=== PATIENT | female | born 1975 | race Caucasian/White ===

== ENCOUNTER 2024-04-10 06:28 | Observation (INO) ==
--- NOTE | 2024-03-02 12:55 | PAT Medication Instructions ---
Medication Instructions Date of Service March 02, 2024 Home Medications multivitamin 1 tab PO QAM DO NOT take the morning of surgery multivitamin 1 tab PO QAM Other Notes NOTHING TO EAT OR DRINK AFTER MIDNIGHT. If you have any questions please call us at [phone] or [phone] or [phone] or [phone]
--- NOTE | 2024-03-09 10:09 | Anesthesiology Consultation ---
Date of Service March 09, 2024 Assessment & Plan (1) Encounter for pre-operative examination: Chart Review Chart Review: Acceptable Risk for Surgery and Patient seen in Pre Admission Testing Pt currently scheduled as 23 hours observation. If surgeon decides to change patient to Same Day Joint, patient would be acceptable risk for DALE, pending patient is motivated, has good support and surgeon's office completes [facility] Program preop requirements. Per PAT appt on 03/09/24, no recent illness/disease exposures, illness related symptoms, or recent illness/disease positive tests. Will leave to surgeon's discretion if preop Covid testing needed Teaching & Discussion Pre-Anesthesia Teaching/Discussion Notes: Instructed NPO after midnight before surgery,except medications with 15 cc of water. Medication instructions provided according to the PAT guidelines. History Surgery Operation Date: 04/10/24 07:00 Proposed Procedures p Right Total Hip Arthroplasty - Theo Bautista MD Height/Weight Height: 5 ft 9 in Weight: 118.2 kg Allergies Allergy/AdvReac Type Severity Reaction Status Date / Time Penicillins Allergy Unknown Hives Verified 02/23/24 11:19 Medications Home Medications Medication Instructions Recorded Confirmed Last Taken multivitamin 1 tab PO PM 02/23/24 03/09/24 Unknown Past Medical History Medical History Asthma no inhalers, no issues in years (only has issues when sick) well controlled and stable currently Elevated BP without diagnosis of hypertension Hip osteoarthritis History of anesthesia reaction states had issues with hysterectomy, slow to wake History of COVID-19 2021- no hosp; resolved Nausea and vomiting after administration of anesthetic agent Exercise / Class Metabolic Activity II 4-5 Yardwork/Stairs/Walk up hill (one flight of stairs - no chest pain or SOB ) Past Family History Family History Other No family history of adverse response to anesthesia Past Surgical History Surgical History History of hysterectomy Hx of colonoscopy Hx of umbilical hernia repair S/P tonsillectomy [place] teeth removed Past Anesthesia History No Hx of Anesthesia Complications (with exception to slow to wake with hysterectomy - just groggy- no reintubation or ICU stay- no issues with subsequent umbilical hernia surgery ) and No Family Hx of Anesthesia Complications History of PONV History of PONV (patient feels more due to pain medication (unsure of what type) ) and Hx of Motion Sickness Social History Smoking Status: Never smoker Do You Dip or Chew Tobacco: No Hx Alcohol Use: Yes alcohol intake frequency: holidays/special occasions only Hx Substance Use: No substance use type: does not use Review of Systems - Occ reflux - no medications needed - Hx of snoring - minimal witnessed apnea - no hx of sleep study Patient denies chest pain, shortness of breath, dyspnea on exertion, cough, wheezing, palpitations. No hx of seizures, stroke, PA. No hx of blood clots or blood transfusions Physical Exam Vital Signs VITALS BP 109/72 P 63 TEMP 98.1 SP02 96% RESP 16 Constitutional no acute distress ENMT Mouth: no TMJ clicking Thyromental Distance: > or= 3.5 Finger Breadths (3.5) Mallampati Class: III Top partial denture Missing bottom molars Neck neck extension not limited Respiratory normal respiratory effort; no respiratory distress Auscultation: lungs clear to auscultation bilaterally; no wheezes Cardiovascular Rate/Rhythm: regular rate and regular rhythm Heart Sounds: no murmur Vessels: no carotid bruit Musculoskeletal Spine: no pain with cervical ROM Extremities: extremities normal to inspection Psychiatric Orientation: alert Lab Results Anesthesia Preop Results Results Anesthesia Widget: WBC 5.38 K/ul (4.8-10.8) 03/09/24 Hgb 14.2 g/dl (12.0-16.0) 03/09/24 Hct 42.5 % (37.0-47.0) 03/09/24 Plt 206 K/uL (130-400) 03/09/24 Na 140 mmol/L (136-145) 03/09/24 K 4.1 mmol/L (3.5-5.1) 03/09/24 Cl 106 mmol/L (98-107) 03/09/24 CO2 29 mmol/L (21-32) 03/09/24 BUN 10 mg/dl (6-23) 03/09/24 Creat 0.80 mg/dl (0.6-1.2) 03/09/24 Glucose Level 92 mg/dl (70-99(Fasting)) 03/09/24 PT 10.5 Seconds (9.0-12.0) 03/09/24 PTT 32 Seconds (21-31) H 03/09/24 INR 1.0 (0.9-1.1) 03/09/24 Blood Type O Positive 03/09/24 Antibody Screen NEGATIVE 03/09/24 Testing Electrocardiogram Date: 03/09/24 Findings: + SB @ (59bpm) Rightward axis Low voltage QRS Chest X-Ray Date: 03/09/24 Findings: + NAD FINDINGS: No lines and tubes are seen. The cardiomediastinal silhouette is normal. The lungs are clear. No evidence of pleural effusion or pneumothorax.
--- NOTE | 2024-04-07 08:43 | History & Physical Report ---
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 This is gradually gotten worse over the past 4 years. She is failed conservative treatment. She would like to have her hip fixed. Plan: Orgran taken to the operating due to right total hip placement but the risks Mente this procedure explained the patient and include but not limited to DVT PE infection neurological and vascular bleeding palm pain limb range of motion test is fairly her symptoms incomplete relief of symptoms need for further surgery in the future dislocation fracture leg length inequality excetra. The patient understands and desires to proceed. Informed consent was obtained. She does have a a moderate soft tissue envelope. Will likely use a Prevena VAC dressing postoperatively to limit drainage and assist in wound healing. Use aspirin for DVT prophylaxis. She is planning on being discharged home using the [facility] home health program. (2) Hip dysplasia: History of Present Illness Chief Complaint: . Right hip pain. Primary Care Provider: NO PCP . 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 She got about 4-year history of increasing right hip pain discomfort which become more disabling over time. She been followed and treated by Dr. Dickson as well as Dr. Perez here. She has had 2 injections of the hip. There really no long-term relief from this. She describes groin pain thigh pain. She limps more as the day goes on. She has nighttime discomfort. She like to have her hip fixed. Allergies Allergy/AdvReac Type Severity Reaction Status Date / Time Penicillins Allergy Unknown Hives Verified 02/23/24 11:19 Home Medications Medication Instructions Recorded Confirmed Type multivitamin 1 tab PO PM 02/23/24 03/09/24 History Wheeled Walker #1 ea 03/30/24 Rx Past Med/Surg History Medical History Elevated BP without diagnosis of hypertension Hip osteoarthritis History of anesthesia reaction states had issues with hysterectomy, slow to wake History of COVID-19 2019, 2021- no hosp; resolved Nausea and vomiting after administration of anesthetic agent Asthma no inhalers, no issues in years (only has issues when sick) well controlled and stable currently Surgical History Hx of colonoscopy Hx of umbilical hernia repair [place] teeth removed S/P tonsillectomy History of hysterectomy Family History Other No family history of adverse response to anesthesia Social History Smoking Status: Never smoker Second Hand Exposure: No; Do You Dip or Chew Tobacco: No; Tobacco Cessation Education Requested by Patient: No Hx Alcohol Use: Yes Hx Substance Use: No Preferred Language: Congolese Communication Ability: Effective Senior It Engineer Required: No Beliefs That Will Affect Care: None Current Living Situation: Spouse Other Information That Helps Us Care for You: No Feels Safe at Home: Yes Safety Concerns: Feels Safe At This Time Assistive Devices: Glasses Review of Systems All systems reviewed & are unremarkable except as noted in HPI & below. Physical Exam . Physical examination reveals a pleasant a 48-year-old female. Looks to be in good health. Examination of the right hip reveal patient walks with a slightly antalgic gait. Leg lengths appear pretty clinically equal. Moderate soft tissue envelope. She is got pain with hip motion. She can internally rotate to neutral at best and recreates her pain. Negative straight leg raise. No knee effusion. She is neurologically intact. Constitutional WD/WN, vitals as above Neck trachea midline, no thyromegaly Respiratory normal respiratory effort, lungs clear to auscultation Cardiovascular RRR, no murmur, no edema Gastrointestinal (Abdomen) normal bowel sounds, soft, nontender, no hepatosplenomegaly Results & Data Results & Data Laboratory Results . Diagnostic Findings . X-rays of the right hip were reviewed. Shows that for the significant right hip arthritis. She got near complete loss of the joint space. She got a fairly shallow acetabulum suggestive of some degree of hip dysplasia. Bone density looks good. PG Care Time/CCT Total # of Minutes Spent Total Time Spent with Patient: Total time spent is greater than 50% in coordination of care (as documented) at patient's floor/unit and/or counseling patient: Coding Level of Care Code None Diagnoses Hip osteoarthritis M16.9 Hip dysplasia Q65.89
[2024-04-10] MEDS ORDERED: BUPIVACAINE 0.5 % 5 MG/1 ML PF 10ML VIAL ONE (06:35)
--- NOTE | 2024-04-10 06:50 | History & Physical Bridge Note ---
Date of Service April 10, 2024 History & Physical Bridge Note I have examined the patient, reviewed the History & Physical and in the interval since the performance of the History & Physical I have noted the following changes of clinical significance: no changes noted
[2024-04-10] MEDS ORDERED: Nursing to Pharmacy Communication SCH (07:00)
[2024-04-10] MEDS: ACETAMINOPHEN 500 MG TAB PO SCH ×2 (07:19→13:32)
[2024-04-10] MEDS: CeleBREX 200 MG CAP PO SCH (07:19)
[2024-04-10] MEDS: METOCLOPRAMIDE HCL 10 MG TABLET PO SCH (07:19)
[2024-04-10] MEDS: LR 500ML BOLUS, THEN 15ML/HR IV SCH (07:19)
[2024-04-10] MEDS: FAMOTIDINE 20 MG TAB PO SCH (07:19)
[2024-04-10] MEDS: LR 60ML/HR IV SCH (07:20)
[2024-04-10] MEDS: dexAMETHasone**PF** 10 MG/ML VIAL IV SCH (07:20)
[2024-04-10] MEDS: Scopolamine 1 MG TDSY TD SCH (07:20)
[2024-04-10] MEDS ORDERED: fentaNYL citrate PF 100 MCG/2 ML VIAL ONE (07:49)
[2024-04-10] MEDS ORDERED: MIDAZOLAM HCL 1 MG/ML 2ML VIAL ONE ×2 (07:49→09:04)
[2024-04-10] MEDS ORDERED: MoRPHine SULFATE PF 1 MG/ML 10 ML AMP/VIAL ONE (08:25)
[2024-04-10] MEDS ORDERED: SODIUM CHLORIDE 0.9% PF INJ 10 ML VIAL ONE (08:26)
[2024-04-10] MEDS: TRANEXAMIC ACID 1,000 MG **IV Pre-op IV SCH (08:40)
[2024-04-10] MEDS: ceFAZolin 2000MG 2,000 MG/15 ML SYR IV SCH ×2 (08:58→16:08)
[2024-04-10] MEDS: ceFAZolin 1000MG 1,000 MG/7.5 ML SYR IV ONE (08:58)
[2024-04-10] MEDS ORDERED: ceFAZolin 330 MG/ML 1 GM VIAL ONE (09:11)
[2024-04-10] MEDS ORDERED: ePHEDrine sulfate 50 MG/5 ML SYR ONE ×2 (09:13→11:29)
[2024-04-10] MEDS ORDERED: PROPOFOL IV EMULSION 10 MG/ML 20 ML VIAL IV ONE (10:03)
[2024-04-10] MEDS ORDERED: HYDROmorphone INJ 0.5 MG/0.5 ML SYR IV PRN (10:08)
[2024-04-10] MEDS ORDERED: NALOXONE HCL 0.08 MG in SYRINGE 1.8 ML IV PRN (10:08)
[2024-04-10] MEDS ORDERED: diphenhydrAMINE 50 MG/ML VIAL IV PRN (10:08)
[2024-04-10] MEDS ORDERED: PROMETHAZINE HCL 6.25 MG in SODIUM CHLORIDE 0.9% 50 ML IV PRN (10:08)
[2024-04-10] MEDS ORDERED: NALOXONE HCL 0.4 MG/1 ML VIAL/CARP IV PRN ×2 (10:08→12:10)
[2024-04-10] MEDS ORDERED: ePHEDrine sulfate 50 MG/ML AMP IV PRN (10:08)
[2024-04-10] MEDS ORDERED: NALBUPHINE HCL 5 MG in SYRINGE 0 ML IV PRN (10:08)
[2024-04-10] MEDS ORDERED: ONDANSETRON INJ 2 MG/ML 2 ML VIAL IV PRN (10:08)
[2024-04-10] MEDS ORDERED: LACTATED RINGER'S 500 ML IV PRN (10:08)
[2024-04-10] MEDS ORDERED: NALOXONE HCL 1 MG in SODIUM CHLORIDE 0.9% 1,000 ML IV PRN (10:08)
[2024-04-10] MEDS ORDERED: DC INTRASPINAL MORPHINE SCH (10:15)
[2024-04-10] MEDS ORDERED: NO NARCOTICS OR SEDATIVES SCH (10:15)
[2024-04-10] MEDS: BUPIVACAINE/EPINEPHRINE 0.5% MPF 1:200,000 30 ML VIAL ONE (10:23)
--- NOTE | 2024-04-10 10:55 | Operative Report ---
PG Post Operative Report Pre & Post Diagnosis Operation Date: 04/10/24 08:50 Pre-Op Diagnosis: Right Hip Degenerative Joint Disease Post-Op Diagnosis: Right Hip Degenerative Joint Disease I identified the patient and participated in the time-out.: Yes Procedure Operation Date: 04/10/24 08:50 Actual Procedures p Right Total Hip Arthroplasty(Right) - Theo Bautista MD Surgeon Theo Bautista MD Dryerman/Woman Kolby Arenas PA-C Estimated Blood Loss 200 Findings Consistent with Post-Op Diagnosis Operative findings show advanced right hip DJD. She had grade 4 [id number] disease of the femoral head and acetabulum. She had a very shallow dysplastic acetabulum. Fairly minimal osteophyte formation. Significant joint effusion. Specimens Right femoral head sent for pathology. Anesthesia Type Spinal MAC Complications none Disposition Accompanied Patient To Recovery: No Indications Patient is a 48-year-old female is had a several year history of increasing right hip pain discomfort is gradually gotten worse over time. She been through extensive conservative treatments became less successful over time. X-rays show advanced hip arthritis with shallow/dysplastic acetabulum. Patient elected proceed with surgical treatment. Description of Procedure Operative implants consisted of: 1. Biomet G7 size 50 mm acetabular shell. 2. Pilger hole accounting analyst. 3. 6.5 cancellous acetabular screws 1 of 35 mm in length and 1 of 25 mm length. 4. Highly cross-linked polyethylene liner with a 50 mm outer diameter and 32 mm inner diameter. 5. DePuy Corail size 11 KLA femoral stem. 6. +5/32 mm ceramic articular ball. The patient was taken the operating, identified, placed on the operating table in the supine position. All contact areas were appropriately padded. IV antibiotics were provided by the anesthesia team. A Ontiveros catheter was placed in sterile fashion. A spinal anesthetic and been implemented holding area. The patient was then placed in the left lateral decubitus position. An axillary roll was placed. Distal Birkett position was used for positioning. The right hip and leg were then prepped and draped in the usual sterile fashion. A posterolateral approach of the right hip was then performed to a curvilinear incision centered over the greater trochanter. Sharp dissection was got through subcutaneous tissue down the level the IT band gluteal fascia but the IT band gluteal fascia was sized longitudinally in line with skin incision. The underlying greater bursa was excised. The piriformis and external rotators along with the posterior joint capsule were then released from the posterior aspect the hip as a single layer. Great care was taken throughout the procedure to protect the sciatic nerve at all times. Hip was internally rotated and dislocated. Femoral neck osteotomy cut was made with Final Cut 15 mm above the lesser trochanter. Femoral head was removed and sent for pathology. The femur was retracted anteriorly. Attention drawn the acetabulum. The acetabular labrum was excised. The pulmonary fat was excised. Sequential reaming the acetabular was then performed again with a size 43 and progressing up to a 49. I reamed a little bit with a 50 reamer and then placed a 50 mm Biomet G7 acetabular shell in about 40 degrees lateral opening and 20 degrees of anteversion. It was fixed with two 6.5 screws. A trial liner was placed. Attention drawn the femur. The proximal femur was entered with a K-12 [employer] cutter followed by canal finder. I then broached beginning with size 8 and progressing up to 11. Excellent fit 11. We trialed the hip and hip was fully stable in full extension and external rotation flexion to 90 degrees internal Tatian over 50 degrees with the 32 head. Leg lengths and soft tissue seemed appropriate. We elected to use this 32 head in order to try to maximize the polyethylene thickness based on her young age. We elect to place these implants. All trial implants were removed. Pilger electro plater was placed. Highly cross- linked polyethylene liner was placed. A size 11 KLA femoral stem was impacted in position. +5/32 mm ceramic articular ball was placed. Hip was located once again found to be stable. Attention drawn toward closing. The wound was irrigated coconuts pulsatile lavage solution. I did inject locally with 50 cc of half percent Marcaine with epinephrine. The posterior capsule and external rotators then repaired through drill holes in the posterior trochanter with #2 Tycron suture. The IT band gluteal fascia then closed in 1 PDS suture in a running fashion for subcutaneous tissues then closed with 2 layers of the deep layer #2 Vicryl suture in the subcutaneous tissues with 2 Dexon suture in a buried interrupted fashion. Skin was closed with skin ivy. The leg was then cleaned and dried. A sterile Prevena VAC dressing was applied due to the thick soft tissue envelope. The patient was then transferred to the recovery room in stable condition. The patient tolerated procedure well and there were no complications. Kolby Arenas, my physician printer assistant, was present for the entire procedure. His assistance was essential and required for appropriate patient positioning, prepping and draping, surgical exposure, performing the technical details of the operation, placement the implants, closure of the wound, and placement of the sterile bandage. I attest to the content of the Intraoperative Record and any orders documented therein. Any exceptions are noted below.
--- NOTE | 2024-04-10 11:43 | XRay Report ---
XR hip 1V RT w pelvis CLINICAL HISTORY: Postoperative evaluation. COMPARISON: Right hip radiographs March 09, 2024. FINDINGS: Alignment of the total right hip arthroplasty is anatomic. There is no periprosthetic frac ture or unexpected radiopaque foreign body. There are skin ivy. IMPRESSION: Expected findings following total right hip arthroplasty. ACT 112: Negative or not required by law. Electronically signed by: Stefano Osorio M.D. 04/10/2024 11:42 AM
--- NOTE | 2024-04-10 11:54 | Anesthesiology Progress Note ---
Date of Service April 10, 2024 Anesthesia Post Procedure Vital Signs Vital Signs: Temp Pulse Pulse Resp BP Pulse Ox O2 Del Method 04/10/24 11:40 98.8 F 67 22 131/78 98 Room Air 04/10/24 11:30 73 13 130/74 96 Room Air 04/10/24 11:20 75 16 122/78 96 Room Air 04/10/24 11:10 67 15 131/73 100 Oxymask 04/10/24 11:00 67 14 133/72 100 Oxymask 04/10/24 10:50 65 14 140/65 100 Oxymask 04/10/24 10:44 97.0 F L 66 18 134/69 98 Oxymask 04/10/24 06:45 98.2 F 72 20 128/92 98 Room Air O2 Flow Rate 04/10/24 11:40 04/10/24 11:30 04/10/24 11:20 04/10/24 11:10 9 04/10/24 11:00 9 04/10/24 10:50 9 04/10/24 10:44 9 04/10/24 06:45 Transfer of Care Handoff Completed per policy Notes Mental Status: alert / awake / arousable and participated in evaluation Patient Amnestic to Procedure: Yes Nausea / Vomiting: adequately controlled Pain: adequately controlled Airway Patency, RR, SpO2: stable & adequate BP & HR: stable & adequate Hydration State: stable & adequate Neuraxial Anesthesia: was administered and sensory block is resolving Anesthetic Complications: no major complications apparent and Pt Satisfied with anesthetic care
[2024-04-10] MEDS: MoRPHine SULFATE PF 1 MG/ML 10 ML AMP/VIAL INT SPINAL ONE (11:55)
[2024-04-10] MEDS: SODIUM CHLORIDE 0.9% 1,000 ML IV SCH ×2 (11:56→12:17)
[2024-04-10] MEDS ORDERED: ALUMINUM/MAGNESIUM SUSP 30 ML UDC PO PRN (12:10)
[2024-04-10] MEDS ORDERED: bisacodyL 10 MG SUPP PR PRN (12:10)
[2024-04-10] MEDS ORDERED: METOCLOPRAMIDE HCL INJ 5 MG/ML 2 ML VIAL IV PRN (12:10)
[2024-04-10] MEDS ORDERED: MAGNESIUM HYDROXIDE SUSP 30 ML UDC PO PRN (12:10)
[2024-04-10] MEDS: KETOROLAC 30 MG/ML VIAL IV SCH (12:30)
[2024-04-10] MEDS ORDERED: ACETAMINOPHEN 500 MG TAB PO SCH (14:00)
[2024-04-10] MEDS: Scopolamine CHECK PATCH PLACEMENT SCH (16:05)
[2024-04-10] MEDS: TRANEXAMIC ACID / 0.7% NACL 1,000 MG/100 ML BAG IV SCH (16:22)
[2024-04-10] MEDS: ASCORBIC ACID 500 MG TAB PO SCH (16:50)
[2024-04-10] MEDS: ASPIRIN 81 MG ECTAB PO SCH (20:38)
[2024-04-10] MEDS: SENNA 8.6 MG TAB PO SCH (20:38)
[2024-04-10] MEDS: DOCUSATE SODIUM 100 MG CAP PO SCH (20:39)
[2024-04-10] MEDS ORDERED: SENNA 8.6 MG TAB PO SCH (21:00)
[2024-04-10] MEDS ORDERED: NON-FORMULARY MEDICATION (Multivitamin Tablet) PO SCH (21:00)
[2024-04-11 06:37] LABS: Basophils # (auto) 0.02 K/uL (0.00-0.20); Basophils % (auto) 0.2 %; Eosinophils # (auto) 0.01 K/uL (0.00-0.50); Eosinophils % (auto) 0.1 %; Hematocrit (blood only) 31.8 % (37.0-47.0); Hemoglobin 10.8 g/dl (12.0-16.0); Immature Granulocytes # (auto) 0.06 K/uL (0.01-0.20); Immature Granulocytes % (auto) 0.6 %; Lymphocytes # (auto) 1.22 K/uL (1.20-3.40); Lymphocytes % (auto) 11.9 %; Mean Corpuscular Volume 85.3 fL (80.0-100.0); Monocytes # (auto) 0.81 K/uL (0.11-0.59); Monocytes % (auto) 7.9 %; Neutrophils # (auto) 8.12 K/uL (1.40-6.50); Neutrophils % (auto) 79.3 %; Platelet Count 185 K/uL (130-400); RDW Coefficient of Variation 12.9 % (11.5-14.5); RDW Standard Deviation 39.9 fL (36.4-46.3); Red Blood Count 3.73 M/uL (4.20-5.40); White Blood Count 10.24 K/ul (4.8-10.8)
[2024-04-11 06:59] LABS: BUN Creatinine Ratio 13.8 (10-20); Calcium 8.2 mg/dl (8.6-10.3); Est GFR (African American) 99.6 ml/min
[2024-04-11] MEDS: diphenhydrAMINE Capsule 25 MG CAP PO PRN (07:23)
[2024-04-11] MEDS: dexAMETHasone 10 MG in SYRINGE 0 ML IV SCH (07:24)
[2024-04-11] MEDS: MULTIVITAMIN TAB PO SCH (07:25)
[2024-04-11] MEDS ORDERED: NON-FORMULARY MEDICATION (Amino Acids [Amino Acid] Capsule) PO SCH (09:00)
[2024-04-11] MEDS: HYDROmorphone INJ 0.5 MG/0.5 ML SYR IV PRN (09:37)
[2024-04-11] MEDS: ONDANSETRON INJ 2 MG/ML 2 ML VIAL IV PRN (09:38)
--- NOTE | 2024-04-11 11:10 | Surgery Progress Note ---
Date of Service April 11, 2024 Assessment & Plan (1) Status post right hip replacement: Plan: 48-year-old female postop day 1 from right total hip replacement doing okay. Had a pretty rough night and struggling with mobilization. Pain seem to be pretty well-controlled but having problems with blood pressure and dizziness. Plan: 1. DVT prophylaxis including thigh-high teds, SCDs, aspirin twice a day. 2. PT/OT. Weight-bear as tolerated. Total hip protocol. 3. Pain control doing okay with current pain regimen. We need to, limit medicines as she is not feeling too well make sure that it is not a source of her feeling ill. 4. Wound care. She got a Prevena VAC dressing in place. I will stay on for a week. 5. Disposition she is planned to be discharged to home with some home health. I do not feel comfortable with her going home currently with her recurrent dizziness and malaise symptoms. Will see how she does throughout the day. If things progress and improve we may send her home but likely may be tomorrow after therapy. Admission and Anticipated Discharge Date Admission Date: April 10, 2024 Subjective 48-year-old female postop day 1 from a right total hip replacement. She is doing okay. Had a pretty rough night. Apparently her blood pressure dropped some. She is felt dizzy and lightheaded intermittently when she gets up. She feels like she has had some vertigo. Denies any chest pain or shortness of breath. Physical Exam Physical Exam: Physical examination was a pleasant Middle-aged female. Sitting up in her bedside chair and looks pretty comfortable at the moment. Examination of the right hip reveals the dressing to be clean dry and intact. Her thigh is soft and supple. Leg lengths are equal. She can dorsiflex and plantarflex her foot appropriately. She is neurologically intact. Respiratory: normal respiratory effort, lungs clear to auscultation Cardiovascular: RRR, no murmur, no edema Gastrointestinal (Abdomen): normal bowel sounds, soft, nontender, no hepatosplenomegaly Results & Data Vital Signs (Past 12 Hours) Vital Signs Temp Pulse Resp BP BP Pulse Ox O2 Del Method 04/11/24 09:20 18 98 04/11/24 07:50 36.6 C 66 17 103/57 L 97 Room Air 05/15/24 07:20 16 96 04/11/24 04:13 36.9 C 59 L 18 95/60 L 96 Room Air 04/11/24 00:26 36.8 C 57 L 14 97/59 L 97 Room Air 04/10/24 23:54 36.9 C 58 L 18 92/56 L 94 Room Air Laboratory Results Hemoglobin is 10.8. Hematocrit 31.8. Electrolytes are stable. PG Care Time/CCT Total # of Minutes Spent Total Time Spent with Patient: Total time spent is greater than 50% in coordination of care (as documented) at patient's floor/unit and/or counseling patient: Coding Level of Care Code 81723 Post Operative Follow-Up Diagnoses Status post right hip replacement Z96.641
[2024-04-12] MEDS: traMADol HCL 50 MG TABLET PO PRN (00:09)
--- NOTE | 2024-04-12 07:09 | Surgery Progress Note ---
Date of Service April 12, 2024 Assessment & Plan (1) Status post right hip replacement: Plan: 48-year-old female postop day 2 from right hip replacement. She is doing better today. Pain is controlled. Dizziness is resolved. Plan: 1. DVT prophylaxis including thigh-high teds, SCDs, aspirin twice a day. 2. PT/OT. Weight-bear as tolerated. Right total hip protocol. 3 pain control doing okay with current pain regimen. 4. Disposition plan to discharge to home after therapy today with home health. Admission and Anticipated Discharge Date Admission Date: April 10, 2024 Subjective 48-year-old female postop day 2 from a right uncemented total hip arthroplasty. She is doing better this morning. As she been up several times through the night going to the bathroom. No further dizziness. No chest pain or shortness of breath. Pains controlled. Physical Exam Physical Exam: Physical examination is a pleasant middle-age female. She is lying bed this morning looks pretty comfortable. Examination of the right hip and leg reveals the dressing be clean dry and intact. Thigh is soft and supple. Leg lengths are equal. She is neurologically intact. Hip is located. Results & Data Vital Signs (Past 12 Hours) Vital Signs Temp Pulse Pulse Resp BP BP Pulse Ox 04/12/24 06:53 36.7 C 64 16 125/80 97 04/12/24 05:00 133/81 04/11/24 21:45 36.9 C 82 16 133/81 94 O2 Del Method 04/12/24 06:53 Room Air 04/12/24 05:00 04/11/24 21:45 Room Air PG Care Time/CCT Total # of Minutes Spent Total Time Spent with Patient: Total time spent is greater than 50% in coordination of care (as documented) at patient's floor/unit and/or counseling patient: Coding Level of Care Code 69312 Post Operative Follow-Up Diagnoses Status post right hip replacement Z96.641
--- NOTE | 2024-04-18 10:54 | Discharge Summary ---
Date of Service April 18, 2024 Discharge Data Procedures Performed Operation Date: 04/10/24 08:50 Actual Procedures p Right Total Hip Arthroplasty(Right) - Theo Bautista MD Hospital Course (1) Status post right hip replacement: This is a 48 year old patient admitted on 04/10/24 and underwent total hip arthroplasty. She tolerated the procedure well and there were no complications. Transferred to the PACU post op and later to the orthopedic floor for further care. She was given ancef for antibiotic prophylaxis. She was also given JORGE LUIS stockings, SCDs, and aspirin for DVT prophylaxis. Hemoglobin, hematocrit, and vital signs were monitored during her hospital stay and remained stable. Did not require any blood transfusions. There were no complications during her hospital stay. By post op day #2 the patient was tolerating a regular diet, pain was reasonably controlled with oral pain medicine, and she was participating in physical therapy. On post op day #2 the patient was discharged home and set up with home health care. She was given printed discharge instructions including prescriptions for extra strength tylenol, aspirin, ketorolac, zofran, senokot, and tramadol. Continue hip precautions. Continue physical therapy, weight bearing as tolerated. Continue JORGE LUIS stockings. Follow up approximately 2 weeks post op or sooner if there are problems or concerns. Coding Level of Care Code None Diagnoses Status post right hip replacement Z96.641
== END 2024-04-12 13:17 | disposition home health service (06) ==
LOC: 3E 06:28 → ASU 06:28
DX: M25.451 Effusion, right hip; M65.9 Synovitis and tenosynovitis, unspecified; Z79.82 Long term (current) use of aspirin; Z68.39 Body mass index [BMI] 39.0-39.9, adult; R03.0 Elevated blood-pressure reading, without diagnosis of hypertension; M16.11 Unilateral primary osteoarthritis, right hip; Q65.89 Other specified congenital deformities of hip; Z79.899 Other long term (current) drug therapy; J45.909 Unspecified asthma, uncomplicated; M25.751 Osteophyte, right hip; R53.81 Other malaise; E66.9 Obesity, unspecified; R42 Dizziness and giddiness; Z88.0 Allergy status to penicillin